=== PATIENT | female | born 1960 | race Two or more races ===

== ENCOUNTER 2022-03-05 06:02 | Emergency (ER) | payer OTHER ==
[~2022-03-05] VITALS: Ht 162.6 cm; Wt 86.4 kg
--- NOTE | 2022-03-05 06:37 | NUR ---
Dr Gomez at bedside, MSE in progress
[2022-03-05] MEDS ORDERED: ACETAMINOPHEN 650 MG/20.3 ML LIQUID UDC ONE (07:00)
[2022-03-05] MEDS ORDERED: KETOROLAC TROMETHAMINE 15 MG INJ IVP ONE (07:00)
[2022-03-05] MEDS ORDERED: METOCLOPRAMIDE HCL 10 MG/2 ML VIAL ONE (07:00)
[2022-03-05] MEDS ORDERED: KETOROLAC TROMETHAMINE 15 MG INJ ONE (07:00)
[2022-03-05] MEDS ORDERED: IV NORMAL SALINE 500 ML BAG IV ONE (07:00)
[2022-03-05] MEDS ORDERED: ACETAMINOPHEN 650 MG/20.3 ML LIQUID UDC PO ONE (07:00)
[2022-03-05] MEDS ORDERED: METOCLOPRAMIDE HCL 10 MG/2 ML VIAL IV ONE (07:00)
[2022-03-05 07:04] LABS: HEMATOCRIT 39.8 % (31.2-41.9); MEAN CORPUSCULAR HEMOGLOBIN 32.5 uug (24.7-32.8); MEAN CORPUSCULAR VOLUME 93.4 fL (75.5-95.3); PLATELET COUNT (AUTO) 249 K/uL (179-408)
--- NOTE | 2022-03-05 07:09 | NUR ---
Change of shift report to [facility]
--- NOTE | 2022-03-05 07:15 | NUR ---
Dr Fraire aspirated pt's RT knee, pt tolorated well.
[2022-03-05 07:25] LABS: BILIRUBIN,TOTAL 0.3 mg/dL (0.2-1.0); CREATININE 0.7 mg/dL (0.6-1.3)
[2022-03-05] MEDS ORDERED: IV NORMAL SALINE 250 ML IV ONE (09:16)
[2022-03-05] MEDS ORDERED: IOHEXOL 350 100 ML INFUS..BTL ONE (09:16)
[2022-03-05] MEDS ORDERED: SWABABLE VALVE TRANSFER SET EA MC ONE ×2 (09:16→09:17)
--- NOTE | 2022-03-05 09:17 | NUR ---
Pt son explained the CT Angio for the patient and the need for consent, pt understood and signed.
--- NOTE | 2022-03-05 09:50 | NUR ---
Back from CT @ [id number]
--- NOTE | 2022-03-05 11:15 | NUR ---
[facility] discharged the pt and gave the instructions at 1115.
[2022-03-05 11:23] VITALS: BP 122/76
--- NOTE | 2022-03-05 11:23 | NUR ---
Patient discharged to home in stable condition. Written and verbal after care instructions given. Patient verbalizes understanding of instructions. Stressed follow up or return to ER for worsening s/s.
== END 2022-03-05 11:23 | disposition home or self-care (01) ==
LOC: ER 06:05
DX: R51.9 Headache, unspecified (principal); M79.604 Pain in right leg; M79.601 Pain in right arm; R73.03 Prediabetes; R91.1 Solitary pulmonary nodule; R79.1 Abnormal coagulation profile; R70.0 Elevated erythrocyte sedimentation rate
CPT/HCPCS: 99285; 71275; 93971; 71045; 96361; 96375; 80053; 83880; 85025; 85379; 85651; 84484; 84702; 36415; 93005; 83605; 96374; J1885; J2765; Q9967; J7040; A4663

== ENCOUNTER 2023-01-15 18:02 | Emergency (ER) | payer OTHER ==
[~2023-01-15] VITALS: Ht 162.6 cm; Wt 86.2 kg
[2023-01-15] MEDS ORDERED: HYDROMORPHONE 1 MG/1 ML DISP.SYRIN IV ONE ×2 (19:15→23:15)
[2023-01-15] MEDS ORDERED: IV NORMAL SALINE 1000 ML BAG IV ONE (19:15)
[2023-01-15] MEDS ORDERED: ONDANSETRON 4 MG/2 ML VIAL IV ONE (19:15)
[2023-01-15] MEDS ORDERED: ONDANSETRON 4 MG/2 ML VIAL ONE (19:28)
[2023-01-15] MEDS ORDERED: KETOROLAC TROMETHAMINE 30 MG INJ ONE (19:28)
[2023-01-15 19:30] LABS: BASOPHILS # (AUTO) 0.1 K/UL (0.0-0.2); BASOPHILS % (AUTO) 0.7 % (0.0-2.0); EOSINOPHILS # (AUTO) 0.1 K/uL (0.0-0.7); EOSINOPHILS % (AUTO) 0.5 % (0.0-7.0); HEMATOCRIT 39.4 % (31.2-41.9); HEMOGLOBIN 13.2 g/dL (10.9-14.3); LYMPHOCYTES # (AUTO) 3.2 K/uL (0.8-4.8); LYMPHOCYTES % (AUTO) 25.5 % (20.5-51.5); MEAN CORPUSCULAR HGB CONC 34 g/dL (32.3-35.6); MEAN CORPUSCULAR VOLUME 92.7 fL (75.5-95.3); MONOCYTES # (AUTO) 1.1 K/uL (0.1-1.30); MONOCYTES % (AUTO) 8.5 % (0.0-11.0); NEUTROPHILS # (AUTO) 8.2 K/uL (1.8-8.9); NEUTROPHILS % (AUTO) 64.8 % (38.5-71.5); PLATELET COUNT (AUTO) 243 K/uL (179-408); RED BLOOD CELL COUNT(AUTO) 4.25 MIL/uL (3.63-4.92); RED CELL DISTRIBUTION WIDTH 13.1 % (12.3-17.7); WHITE BLOOD COUNT (AUTO) 12.7 K/uL (3.8-11.8)
[2023-01-15] MEDS ORDERED: KETOROLAC TROMETHAMINE 30 MG INJ IVP ONE (19:30)
[2023-01-15 19:36] LABS: DIFFERENTIAL COMMENT 1
[2023-01-15 19:41] LABS: CALCIUM 9.4 mg/dL (8.5-10.1); CARBON DIOXIDE 25 mmol/L (21-32); CHLORIDE 98 mmol/L (98-107); CREATININE 0.8 mg/dL (0.6-1.3); GLUCOSE 116 mg/dL (74-106); SODIUM SERUM 134 mmol/L (136-145); UREA NITROGEN, BLOOD 16 mg/dL (7-18)
[2023-01-15 19:48] LABS: ALANINE AMINOTRANSFERASE 18 U/L (14-59); ALBUMIN 3.8 g/dL (3.4-5.0); ALKALINE PHOSPHATASE 15 U/L (50-136); ASPARTATE AMINOTRANSFERASE 29 U/L (15-37); BILIRUBIN,DIRECT < 0.1 mg/dL (0.0-0.2); BILIRUBIN,TOTAL 0.4 mg/dL (0.2-1.0); LIPASE 64 U/L (73-393); TOTAL PROTEIN, SERUM 8.2 g/dL (6.4-8.2)
[2023-01-15] MEDS ORDERED: HYDROMORPHONE 1 MG/1 ML DISP.SYRIN ONE ×2 (19:51→23:15)
[2023-01-15 19:54] LABS: *BILIRUBIN,URIN NEGATIVE (NEGATIVE); *BLOOD, URINE 3+ (NEGATIVE); *KETONES,URINE NEGATIVE (NEGATIVE); *PROTEIN,URINE 2+ (NEGATIVE); LEUKOCYTE ESTERASE ,URINE 3+ (NEGATIVE); NITRITE, URINE POSITIVE (NEGATIVE); PH,URINE 5.5 (5.0-8.0); UGLUCOSE TRACE (NEGATIVE)
[2023-01-15 20:14] LABS: *COLOR,URINE DARK YELLOW (YELLOW)
[2023-01-15 20:15] LABS: *CLARITY,URINE CLOUDY (CLEAR)
[2023-01-15] MEDS ORDERED: CEFTRIAXONE 1 G in IV DEXTROSE 5% 50 ML IV ONE (20:45)
[2023-01-15] MEDS ORDERED: CEFTRIAXONE /D5W 50ML IVPB **ER PYXIS IV ONE (20:50)
[2023-01-15 20:54] LABS: BACTERIA,URINE MANY /HPF (NONE SEEN); RBC,URINE TNTC /HPF (0-3); WBC,URINE TNTC /HPF (0-3); YEAST,URINE FEW /HPF (NONE SEEN)
[2023-01-16 03:58] VITALS: O2SAT 99
== END 2023-01-16 04:50 | disposition short-term general hospital (02) ==
LOC: ER 18:04
DX: N10 Acute pyelonephritis (principal); Z88.5 Allergy status to narcotic agent; Z20.822 Contact with and (suspected) exposure to COVID-19
CPT/HCPCS: 99285; 74176; 96374; 96375; 80076; 80048; 81001; 83690; 85025; 87040 ×3; 36415; 96376; 83605; 87426; J0696; J1885; J2405; J1170 ×2; J7040; A4663